=== PATIENT | female | born 1950 | race Caucasian/White ===

== ENCOUNTER 2021-02-03 20:23 | Inpatient (IN) | payer MEDICARE, OTHER ==
[~2021-02-03] VITALS: Ht 160 cm; Wt 66.3 kg
[2021-02-03 22:43] LABS: BASOPHILS % (AUTO) 1 % (0-1); EOSINOPHILS % (AUTO) 3 % (1-7); LYMPHOCYTES % (AUTO) 53 % (22-44); MEAN CORPUSCULAR HEMOGLOBIN 37.4 pg (27.0-34.8); MEAN CORPUSCULAR HGB CONC 34.7 g/dL (32.4-35.8); MEAN PLATELET VOLUME 7.9 fL (7.4-10.4); MONOCYTES % (AUTO) 7 % (2-9); NEUTROPHILS % (AUTO) 36 % (42-75); PLATELET COUNT 228 x10^3/uL (130-400); RED BLOOD COUNT 4.17 x10^6/uL (3.82-5.3); RED CELL DISTRIBUTION WIDTH 14.8 % (9.6-15.2)
[2021-02-03 22:46] LABS: ALANINE AMINOTRANSFERASE 43 U/L (12-78); ALBUMIN 3.3 g/dL (3.4-5.0); ANION GAP 9 mmol/L (5-15); CALCIUM 8.2 mg/dL (8.5-10.1); CHLORIDE 108 mmol/L (98-107); CREATININE 0.81 mg/dL (0.55-1.02)
[2021-02-03 22:51] LABS: ALKALINE PHOSPHATASE 125 U/L (45-117); BILIRUBIN,TOTAL 0.5 mg/dL (0.2-1.0); TOTAL PROTEIN 6.9 g/dL (6.4-8.2); TROPONIN I < 0.015 ng/mL (0.000-0.045)
--- NOTE | 2021-02-03 23:00 | NUR ---
85% ON RA. PLACED ON 6 L NC AT 88%. NOW ON OXYMASK AT 10 L, SPO02 92%. PT REPORTS FEELING EASILY FATIGUED WHILE AMBULATING AT HOME.
[2021-02-04 00:05] LABS: MICROSCOPIC AUTO
--- NOTE | 2021-02-04 00:20 | NUR ---
ROAD TEST, PT STEADY WITH INDEPENDENT GAIT, SP02 SATS OF 85% WHILE AMBULATING AND AT REST. DR LOPEZ AWARE
--- NOTE | 2021-02-04 01:10 | NUR ---
PT VERY ANXIOUS ABOUT ADMISSION. PT EASILY REDIRECTABLE AND ABLE TO CALM DOWN WITH THERAPUETIC COMMUNICATION.
--- NOTE | 2021-02-04 01:11 | NUR ---
[facility] AT BEDSIDE
[2021-02-04] MEDS ORDERED: FLUO10CA13 PO (01:17)
[2021-02-04] MEDS ORDERED: ALPR0.5T7 PO (01:17)
--- NOTE | 2021-02-04 01:39 | NUR ---
REPORT TO JULIETTE CHRISTOPHER
[2021-02-04] MEDS ORDERED: THIAMINE 200 MG in SODIUM CHLORIDE 0.9% 50 ML IV ONE (02:00)
[2021-02-04] MEDS ORDERED: ACETAMINOPHEN 325 MG TABLET PO PRN (02:00)
[2021-02-04] MEDS ORDERED: LABETALOL 5MG/ML, 20ML IVPush PRN (02:00)
[2021-02-04] MEDS ORDERED: ONDANSETRON 2MG/ML, 2ML IVPush PRN (02:00)
[2021-02-04 02:12] LABS: C-REACTIVE PROTEIN, QUANT 0.19 mg/dL (0.02-0.49)
[2021-02-04 02:20] VITALS: BP 168/90
[2021-02-04] MEDS ORDERED: PLEASE ENTER ALLERGIES MC SCH (02:30)
[2021-02-04] MEDS ORDERED: [UNRECOGNIZED DRUG - OTHER] (02:31)
[2021-02-04] MEDS: ENOXAPARIN 40 MG/0.4 ML SQ SCH (05:57)
[2021-02-04 07:51] VITALS: BP 155/92
[2021-02-04] MEDS: LISINOPRIL 5 MG TABLET PO SCH (08:50)
[2021-02-04] MEDS: THIAMINE 100MG TABLET PO/NG SCH (08:50)
[2021-02-04] MEDS: AZITHROMYCIN 500 MG TABLET PO SCH (08:50)
[2021-02-04 14:00] VITALS: BP 162/84
[2021-02-04 19:27] VITALS: BP 150/95
[2021-02-05 03:52] VITALS: BP 148/86
[2021-02-05] MEDS: ENOXAPARIN 40 MG/0.4 ML SQ SCH (05:58)
[2021-02-05] MEDS ORDERED: LISI5TAB7 PO (07:20)
[2021-02-05] MEDS ORDERED: AZIT500T10 PO (07:20)
[2021-02-05 09:14] VITALS: BP 137/89
[2021-02-05] MEDS: AZITHROMYCIN 500 MG TABLET PO SCH (09:18)
[2021-02-05] MEDS: LISINOPRIL 5 MG TABLET PO SCH (09:18)
[2021-02-05] MEDS: THIAMINE 100MG TABLET PO/NG SCH (09:18)
[2021-02-05 13:25] VITALS: BP 151/87
[2021-02-05 19:32] VITALS: BP 180/109
[2021-02-05 19:43] VITALS: BP 156/96
[2021-02-05 20:50] VITALS: BP 144/92
[2021-02-06 00:27] VITALS: BP 135/86
[2021-02-06] MEDS: ENOXAPARIN 40 MG/0.4 ML SQ SCH (05:28)
[2021-02-06 07:01] VITALS: BP 158/92
[2021-02-06] MEDS: LISINOPRIL 5 MG TABLET PO SCH (08:26)
[2021-02-06] MEDS: AZITHROMYCIN 500 MG TABLET PO SCH (08:26)
[2021-02-06] MEDS: THIAMINE 100MG TABLET PO/NG SCH (08:26)
[2021-02-06] MEDS ORDERED: FUROSEMIDE 40 MG/4 ML IV SCH (10:00)
[2021-02-06] MEDS ORDERED: POTASSIUM CHLORIDE 20 MEQ TAB.ER.PRT PO ONE (10:00)
[2021-02-06 15:09] VITALS: BP 142/90
== END 2021-02-06 17:37 | disposition home or self-care (01) | DRG 177 ==
LOC: ED 02-04 00:57 → EDIP 02-04 01:01 → 3N 02-04 02:13
PROVIDERS: ADMIT Family Medicine; ATTEND Hospitalist
DX: J69.0 Pneumonitis due to inhalation of food and vomit (principal); J96.01 Acute respiratory failure with hypoxia; F13.20 Sedative, hypnotic or anxiolytic dependence, uncomplicated; F41.9 Anxiety disorder, unspecified; S09.90XA Unspecified injury of head, initial encounter; I10 Essential (primary) hypertension; F51.04 Psychophysiologic insomnia; W18.39XA Other fall on same level, initial encounter; F10.229 Alcohol dependence with intoxication, unspecified; Y90.6 Blood alcohol level of 120-199 mg/100 ml; Z96.649 Presence of unspecified artificial hip joint; Z20.822 Contact with and (suspected) exposure to COVID-19; Z85.3 Personal history of malignant neoplasm of breast; Y93.89 Activity, other specified; Y92.098 Other place in other non-institutional residence as the place of occurrence of the external cause; Y99.8 Other external cause status; Z90.10 Acquired absence of unspecified breast and nipple
CPT/HCPCS: 36415; 70450; 71045; 80053; 80320; 81001; 83615; 83735; 84100; 84443; 84484; 85025; 85379; 86140; 87086; 93005; 99285; G0378; J1650; J1940; J3411; U0005; G0480; U0003